=== PATIENT | female | born 1995 | race Caucasian/White ===

== ENCOUNTER 2016-10-27 19:11 | Emergency (ER) | payer OTHER ==
[2016-10-27] MEDS ORDERED: ALBUTEROL SULFATE 2.5 MG/0.5 ML INH NEB SOLN As Ordered ONE (21:57)
[2016-10-27] MEDS ORDERED: ALBUTEROL 90 MCG/ACT 8GM HFA INHALER As Ordered ONE (23:33)
[2016-10-27] MEDS ORDERED: AZITHROMYCIN 250 MG TAB As Ordered ONE (23:33)
[2016-10-27] MEDS ORDERED: predniSONE 20 MG TAB As Ordered ONE (23:34)
--- NOTE | 2016-10-27 23:41 | EDDOCDS ---
Nurse's Notes [facility] Name: Donaldo Ríos Age: 21 yrs Sex: Female : 1995 Arrival Date: 10/27/2016 Time: 19:11 Bed I6 / 28 Private MD: NO PRIMARY PHYSICIAN, . Diagnosis: Acute bronchitis;Asthma Presentation: 10/27 19:26 Presenting complaint: Patient states: fever, chills, SOB and chest hurts that started dsf this morning. Adult Sepsis Screening: The patient does not have new or worsening altered mentation. Patient's respiratory rate is less than 22. Systolic blood pressure is greater than 100. Patient has a qSOFA score of 0- Negative Sepsis Screen. Suicide/Homicide risk assessment- the patient denies having any suicidal and/or homicidal ideations and does not present with any other emotional, behavioral or mental health complaints. Status: The patient is a dependent. Transition of care: patient was not received from another setting of care. 19:26 Acuity: AGA Level 4 dsf 19:26 Method Of Arrival: Walkin/Carried/Asstd dsf Triage Assessment: 19:28 General: Appears in no apparent distress, Behavior is appropriate for age, cooperative, dsf Reports chills for 12-24 hours, fever for 12-24 hours, feeling ill for 12-24 hours, fatigue for 12-24 hours. Pain: Location: chest Pain currently is 8 out of 10 on a pain scale. Quality of pain is described as "irritating" Aggravated by deep breathing and coughing. HIV screening NA for this visit Offered previously. Respiratory: Reports cough that is non-productive, since this morning. 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 none - PMHx: Asthma; - PSHx: Cholecystectomy; ; back surgery; - Social history: Smoking status: Patient uses tobacco products, current every day smoker. No barriers to communication noted, The patient speaks fluent Barbadian, Speaks appropriately for age. - Family history: Not pertinent. - : The pt / caregiver states he / she is not on anticoagulants. Home medication list is obtained from the patient. - Exposure Risk Screening:: None identified. Screenin:55 Screening information is obtained from the patient. Fall risk: No risks identified. mlc Assistance ADL's: requires no assistance with activities of daily living. Abuse/DV Screen: The patient / caregiver reports he/she is: not in a situation that causes fear, pain or injury. Nutritional screening: No deficits noted. Advance Directives: Currently, there is no health care proxy. home support is adequate. Assessment: 21:33 General: Appears in no apparent distress, Behavior is appropriate for age, cooperative. nn1 General: Patient reports chills and body aches, reports fever yesterday. reports pain in chest only when coughing , cough is non productive . Pain: Location: mid-sternal area Pain began 1 day ago Aggravated by coughing. Neurological: Level of Consciousness is awake, alert, obeys commands, Oriented to person, place, time. Respiratory: Airway is patent Respiratory effort is even, unlabored, Respiratory pattern is regular, symmetrical, Breath sounds are clear bilaterally. Reports shortness of breath cough that is pain with cough. GI: No deficits noted. Derm: Skin is pink, warm & dry. 21:55 General: Appears in no apparent distress, comfortable, Behavior is cooperative. mlc General: pt given water per provider. . Neurological: Level of Consciousness is awake, alert, Oriented to person, place, time. Cardiovascular: Heart tones S1 S2 present. Respiratory: Airway is patent Respiratory effort is even, unlabored, Respiratory pattern is regular, Breath sounds are clear bilaterally. Derm: Skin is pink, warm & dry. 23:38 General: Appears in no apparent distress, comfortable, Behavior is cooperative. mlc Neurological: Level of Consciousness is awake, alert, Oriented to person, place, time. Respiratory: Airway is patent Respiratory effort is even, unlabored, Respiratory pattern is regular. Vital Signs: 19:13 BP 122 / 68; Pulse 65; Resp 18; Temp 99.; Pulse Ox 98% ; Weight 49.9 kg; Height 4 ft. elp 11 in. (149.86 cm); 21:35 BP 113 / 75; Pulse 64; Resp 18; Temp 99.2(O); Pulse Ox 98% on R/A; nn1 23:23 BP 120 / 60; Pulse 62; Resp 16; Temp 98.0; Pulse Ox 100% ; Pain 9/10; ajs 19:13 Body Mass Index 22.22 (49.90 kg, 149.86 cm) [facility] Vitals: 19:13 Log In Time: October 27, 2016 at 19:11. [facility] ED Course: 19:13 Patient visited by Melissa Garcia PCA. elp 19:13 NO PRIMARY PHYSICIAN, . is Private Physician. elp 19:13 Patient moved to Waiting elp 19:14 Patient visited by Melissa Garcia PCA. elp 19:14 Patient moved to Pre RCE elp 19:26 Triage Initiated dsf 21:29 Patient moved to Triage 3 dsf 21:30 Fahad Jean [facility]-C [facility] ck7 21:30 Shahriar Hobbs MD is Attending Physician. ck7 21:30 Patient visited by Fahad Jean RPA-C. ck7 21:39 Patient moved to I6 / dsf 21:42 -Influenza A&B Rapid Antigen - Nose Sent. dsf 21:49 Jazz Mcclendon,RN is Primary Nurse. cf2 21:49 Patient visited by Jazz Mcclendon,FRANKLIN. cf2 21:55 The patient / caregiver is instructed regarding the plan of care and ED course. mlc 21:56 Patient visited by Bibiana Vasquez,FRANKLIN. mlc 22:16 Patient moved to Radiology boom 22:18 Patient visited by Jazz Mcclendon,FRANKLIN. cf2 22:27 Patient moved to I6 / mlc 22:58 Patient visited by Jazz Mcclendon,FRANKLIN. cf2 23:07 Patient name changed from Donaldo\\S\\\\S\\[place]ano\\S\\ to Donaldo\\S\\ \\S\\[place]. EDMS 23:11 [facility] Payment Agreement was scanned into [employer] and attached to record. ks16 23:18 [facility] is Referral Physician. ck7 23:23 Patient visited by Fabi Rod. ajs 23:38 No IV's were initiated during this patient's visit. No procedures done that require mlc assistance. Administered Medications: 22:00 Drug: Albuterol 2.5 mg [albuterol sulfate 2.5 mg/0.5 mL solution for nebulization (0.5 lf2 mL)] Route: Nebulizer; 23:39 Drug: predniSONE 40 mg [prednisone 20 mg tablet (2 tabs)] Route: PO; mlc 23:39 Follow up: Response: Pt left department before re-evaluation is appropriate mlc 23:39 Drug: azithromycin 500 mg [azithromycin 250 mg tablet (2 tabs)] Route: PO; mlc 23:40 Follow up: Response: Pt left department before re-evaluation is appropriate mlc 23:39 Drug: Ventolin 2 puffs [Ventolin HFA 90 mcg/actuation aerosol inhaler (2 puffs)] Route: mlc Inhalation; RT: 22:00 Initial Med Neb Given as ordered Patient was instructed and evaluated on procedure lf2 Patient tolerated procedure well without adverse effect. Oxygen is room air. Respiratory: Airway is patent Respiratory effort is even, unlabored, Breath sounds are clear bilaterally. Reports shortness of breath at rest on exertion cough that is non-productive. Order Results: Lab Order: -Influenza A&B Rapid Antigen - Nose; SPEC'M 10/27/16 21:41 Test: INFLUENZA A RAPID SCR by ICA; Value: INFLUENZA A RESULTS NEGATIVE; Status: F Test: INFLUENZA A RAPID SCR by ICA; Value: Comments:; Status: F Test: INFLUENZA B RAPID SCR by ICA; Value: INFLUENZA B RESULTS NEGATIVE; Status: F Test Note: ; The Influenza test is a direct rapid immunoassay for the qualitative detection of Influenza viral antigen. Cell culture (Viral Culture) testing should be considered to confirm NEGATIVE results and to assist in detecting other viruses that can provide similar clinical symptoms. Please contact the lab within 24 hours ([phone]) if confirmatory testing is desired. Outcome: 23:18 Discharge ordered by Provider. ck7 23:38 Discharge Assessment: Patient awake, alert and oriented x 3. No cognitive and/or mlc functional deficits noted. Patient verbalized understanding of disposition instructions. patient administered narcotics - no. The following High Risk Discharge criteria are identified: None. Discharged to home ambulatory. Condition: good Condition: stable. Discharge instructions given to patient, Instructed on discharge instructions, follow up and referral plans. medication usage, Demonstrated understanding of instructions, medications, Pt was receptive of discharge instructions/ teaching. Prescriptions given X 3. No special radiology studies were completed. Property sent home with patient. 23:40 Patient left the ED. mlc Signatures: Dispatcher [employer] EDMS Nj Marshall Desiree, RN RN Fabi Villegas Christopher, RPA-C RPA-Cck7 Patchen, Melissa, BOX FEEDER BOX FEEDER elp Bibiana Vasquez,RN RN mlc Juan Carlos Salazar,RN RN nn1 Chiara John, [facility] Reg ks16 Akanksha Stallings,RT RT lf2 Jazz Mcclendon,RN RN cf2 MTDD
--- NOTE | 2016-10-27 23:41 | EDDOCDS ---
Physician Documentation [facility] Name: Donaldo Ríos Age: 21 yrs Sex: Female : 1995 Arrival Date: 10/27/2016 Time: 19:11 Bed I6 / 28 Private MD: NO PRIMARY PHYSICIAN, . Disposition: 10/27/16 23:18 Discharged to Home/Self Care. Impression: Acute bronchitis, Asthma. - Condition is Stable. - Discharge Instructions: Acute Bronchitis, Asthma, Adult. - Prescriptions for Prednisone 20 mg Oral Tablet - take 2 tablets by ORAL route once daily for 4 days; 8 tablet. Zithromax 250 mg Oral Tablet - take 1 tablet by ORAL route once daily start tomorrow; 4 tablet. Albuterol Sulfate 90 mcg/actuation Inhalation HFA Aerosol Inhaler - inhale 2 puff by INHALATION route every 4 hours As needed; 1 Inhaler. - Medication Reconciliation, Local Pharmacy Hours form. - Follow up: [facility]; When: 2 - 3 days; Reason: Recheck today's complaints, Continuance of care. - Problem is new. - Symptoms have improved. - Notes: USE MEDICATIONS INSTRUCTED, FOLLOW UP WITH THE GRADUATE MEDICAL PROGRAM, RETURN TO THE ER IF THE SYMPTOMS WORSEN OR BECOME CONCERNING Historical: - Allergies: Bactrim (Anaphylaxis); nystatin (Anaphylaxis); - Home Meds: 1. none - PMHx: Asthma; - PSHx: Cholecystectomy; ; back surgery; - Social history: Smoking status: Patient uses tobacco products, current every day smoker. No barriers to communication noted, The patient speaks fluent Mongolian, Speaks appropriately for age. - Family history: Not pertinent. - : The pt / caregiver states he / she is not on anticoagulants. Home medication list is obtained from the patient. - Exposure Risk Screening:: None identified. 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 11 in. (149.86 cm); 21:35 BP 113 / 75; Pulse 64; Resp 18; Temp 99.2(O); Pulse Ox 98% on R/A; nn1 23:23 BP 120 / 60; Pulse 62; Resp 16; Temp 98.0; Pulse Ox 100% ; Pain 9/10; ajs 19:13 Body Mass Index 22.22 (49.90 kg, 149.86 cm) elp MDM: 21:38 Albuterol 2.5 mg Nebulizer once ordered. ck7 21:38 Call Respiratory ordered. ck7 21:38 Obtain sample by nasopharyngeal swab ordered. ck7 21:39 Call Respiratory complete. ajs 21:40 -Influenza A&B Rapid Antigen - Nose Ordered. EDMS 21:40 Chest, 2 View (pa\E\lat) Ordered. EDMS 22:12 -Influenza A&B Rapid Antigen - Nose Reviewed. ck7 22:52 Financial registration complete. ks16 23:11 [facility] Payment Agreement was scanned into [employer] and attached to record. ks16 23:17 predniSONE 40 mg PO once; administer with food or milk ordered. ck7 23:17 azithromycin 500 mg PO once ordered. ck7 23:17 Ventolin Inhaler 2 puffs Inhalation once ordered. ck7 Administered Medications: 22:00 Drug: Albuterol 2.5 mg [albuterol sulfate 2.5 mg/0.5 mL solution for nebulization (0.5 lf2 mL)] Route: Nebulizer; 23:39 Drug: predniSONE 40 mg [prednisone 20 mg tablet (2 tabs)] Route: PO; mlc 23:39 Follow up: Response: Pt left department before re-evaluation is appropriate mlc 23:39 Drug: azithromycin 500 mg [azithromycin 250 mg tablet (2 tabs)] Route: PO; mlc 23:40 Follow up: Response: Pt left department before re-evaluation is appropriate mlc 23:39 Drug: Ventolin 2 puffs [Ventolin HFA 90 mcg/actuation aerosol inhaler (2 puffs)] Route: mlc Inhalation; Signatures: Dispatcher [employer] EDMS Joana Garcia RN RN dsf Slate, Amanda ajs Kwaczala, Christopher, RPA-C RPA-Cck7 Bibiana Vasquez RN RN mlc Sorenson, Kimberly, Reg Reg ks16 Akanksha Stallings RT lf2 The chart was reviewed and I authenticate all verbal orders and agree with the evaluation and treatment provided.Attachments: 23:11 [facility] Payment Agreement ks16 MTDD
--- NOTE | 2016-10-28 01:47 | REP ---
Clinical: Acute cough . Comparison: None . Technique: PA and lateral. Findings: The mediastinum and cardiac silhouette are normal. The lung cheung are clear and without acute consolidation, effusion, or pneumothorax. Gunn rods noted through the thoracolumbar spine. Impression: 1. No acute cardiopulmonary process. Signed by Mike Olson MD 10/28/2016 01:38 A
--- NOTE | 2016-10-30 00:40 | EDDOCDS ---
Nurse's Notes [facility] Name: Donaldo Ríos Age: 21 yrs Sex: Female : 1995 Arrival Date: 10/27/2016 Time: 19:11 Bed I6 / 28 Private MD: NO PRIMARY PHYSICIAN, . Diagnosis: Acute bronchitis;Asthma Presentation: 10/27 19:26 Presenting complaint: Patient states: fever, chills, SOB and chest hurts that started dsf this morning. Adult Sepsis Screening: The patient does not have new or worsening altered mentation. Patient's respiratory rate is less than 22. Systolic blood pressure is greater than 100. Patient has a qSOFA score of 0- Negative Sepsis Screen. Suicide/Homicide risk assessment- the patient denies having any suicidal and/or homicidal ideations and does not present with any other emotional, behavioral or mental health complaints. Status: The patient is a dependent. Transition of care: patient was not received from another setting of care. 19:26 Acuity: AGA Level 4 dsf 19:26 Method Of Arrival: Walkin/Carried/Asstd dsf Triage Assessment: 19:28 General: Appears in no apparent distress, Behavior is appropriate for age, cooperative, dsf Reports chills for 12-24 hours, fever for 12-24 hours, feeling ill for 12-24 hours, fatigue for 12-24 hours. Pain: Location: chest Pain currently is 8 out of 10 on a pain scale. Quality of pain is described as "irritating" Aggravated by deep breathing and coughing. HIV screening NA for this visit Offered previously. Respiratory: Reports cough that is non-productive, since this morning. 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 none - PMHx: Asthma; - PSHx: Cholecystectomy; ; back surgery; - Social history: Smoking status: Patient uses tobacco products, current every day smoker. No barriers to communication noted, The patient speaks fluent Nicaraguan, Speaks appropriately for age. - Family history: Not pertinent. - : The pt / caregiver states he / she is not on anticoagulants. Home medication list is obtained from the patient. - Exposure Risk Screening:: None identified. Screenin:55 Screening information is obtained from the patient. Fall risk: No risks identified. mlc Assistance ADL's: requires no assistance with activities of daily living. Abuse/DV Screen: The patient / caregiver reports he/she is: not in a situation that causes fear, pain or injury. Nutritional screening: No deficits noted. Advance Directives: Currently, there is no health care proxy. home support is adequate. Assessment: 21:33 General: Appears in no apparent distress, Behavior is appropriate for age, cooperative. nn1 General: Patient reports chills and body aches, reports fever yesterday. reports pain in chest only when coughing , cough is non productive . Pain: Location: mid-sternal area Pain began 1 day ago Aggravated by coughing. Neurological: Level of Consciousness is awake, alert, obeys commands, Oriented to person, place, time. Respiratory: Airway is patent Respiratory effort is even, unlabored, Respiratory pattern is regular, symmetrical, Breath sounds are clear bilaterally. Reports shortness of breath cough that is pain with cough. GI: No deficits noted. Derm: Skin is pink, warm & dry. 21:55 General: Appears in no apparent distress, comfortable, Behavior is cooperative. mlc General: pt given water per provider. . Neurological: Level of Consciousness is awake, alert, Oriented to person, place, time. Cardiovascular: Heart tones S1 S2 present. Respiratory: Airway is patent Respiratory effort is even, unlabored, Respiratory pattern is regular, Breath sounds are clear bilaterally. Derm: Skin is pink, warm & dry. 23:38 General: Appears in no apparent distress, comfortable, Behavior is cooperative. mlc Neurological: Level of Consciousness is awake, alert, Oriented to person, place, time. Respiratory: Airway is patent Respiratory effort is even, unlabored, Respiratory pattern is regular. Vital Signs: 19:13 BP 122 / 68; Pulse 65; Resp 18; Temp 99.; Pulse Ox 98% ; Weight 49.9 kg; Height 4 ft. elp 11 in. (149.86 cm); 21:35 BP 113 / 75; Pulse 64; Resp 18; Temp 99.2(O); Pulse Ox 98% on R/A; nn1 23:23 BP 120 / 60; Pulse 62; Resp 16; Temp 98.0; Pulse Ox 100% ; Pain 9/10; ajs 19:13 Body Mass Index 22.22 (49.90 kg, 149.86 cm) [facility] Vitals: 19:13 Log In Time: October 27, 2016 at 19:11. [facility] ED Course: 19:13 Patient visited by Melissa Garcia PCA. elp 19:13 NO PRIMARY PHYSICIAN, . is Private Physician. elp 19:13 Patient moved to Waiting elp 19:14 Patient visited by Melissa Garcia PCA. elp 19:14 Patient moved to Pre RCE elp 19:26 Triage Initiated dsf 21:29 Patient moved to Triage 3 dsf 21:30 Fahad Jean [facility]C [facility]. ck7 21:30 Shahriar Hobbs MD is Attending Physician. ck7 21:30 Patient visited by Fahad Jean RPA-C. ck7 21:39 Patient moved to I6 / dsf 21:42 -Influenza A&B Rapid Antigen - Nose Sent. dsf 21:49 Jazz Mcclendon,RN is Primary Nurse. cf2 21:49 Patient visited by Jazz Mcclendon,FRANKLIN. cf2 21:55 The patient / caregiver is instructed regarding the plan of care and ED course. mlc 21:56 Patient visited by Bibiana Vasquez,FRANKLIN. mlc 22:16 Patient moved to Radiology boom 22:18 Patient visited by Jazz Mcclendon,FRANKLIN. cf2 22:27 Patient moved to I6 mlc 22:58 Patient visited by Jazz Mcclendon,FRANKLIN. cf2 23:07 Patient name changed from Donaldo\\S\\\\S\\[place]oacano\\S\\ to Donaldo\\S\\ \\S\\[place]. EDMS 23:11 [facility] Payment Agreement was scanned into [employer] and attached to record. ks16 23:18 [facility] is Referral Physician. ck7 23:23 Patient visited by Fabi Rod. ajs 23:38 No IV's were initiated during this patient's visit. No procedures done that require mlc assistance. 10/28 01:58 Chest, 2 View (pa\\E\\lat) Returned. EDMS 11:34 T-Sheet-- Draft Copy was scanned into [employer] and attached to record. gb Administered Medications: 10/27 22:00 Drug: Albuterol 2.5 mg [albuterol sulfate 2.5 mg/0.5 mL solution for nebulization (0.5 lf2 mL)] Route: Nebulizer; 23:39 Drug: predniSONE 40 mg [prednisone 20 mg tablet (2 tabs)] Route: PO; mlc 23:39 Follow up: Response: Pt left department before re-evaluation is appropriate mlc 23:39 Drug: azithromycin 500 mg [azithromycin 250 mg tablet (2 tabs)] Route: PO; mlc 23:40 Follow up: Response: Pt left department before re-evaluation is appropriate mlc 23:39 Drug: Ventolin 2 puffs [Ventolin HFA 90 mcg/actuation aerosol inhaler (2 puffs)] Route: mlc Inhalation; RT: 22:00 Initial Med Neb Given as ordered Patient was instructed and evaluated on procedure lf2 Patient tolerated procedure well without adverse effect. Oxygen is room air. Respiratory: Airway is patent Respiratory effort is even, unlabored, Breath sounds are clear bilaterally. Reports shortness of breath at rest on exertion cough that is non-productive. Order Results: Lab Order: -Influenza A&B Rapid Antigen - Nose; SPEC'M 10/27/16 21:41 Test: INFLUENZA A RAPID SCR by ICA; Value: INFLUENZA A RESULTS NEGATIVE; Status: F Test: INFLUENZA A RAPID SCR by ICA; Value: Comments:; Status: F Test: INFLUENZA B RAPID SCR by ICA; Value: INFLUENZA B RESULTS NEGATIVE; Status: F Test Note: ; The Influenza test is a direct rapid immunoassay for the qualitative detection of Influenza viral antigen. Cell culture (Viral Culture) testing should be considered to confirm NEGATIVE results and to assist in detecting other viruses that can provide similar clinical symptoms. Please contact the lab within 24 hours ([phone]) if confirmatory testing is desired. Radiology Order: Chest, 2 View (pa\\E\\lat) Test: Chest, 2 View (pa\\E\\lat) REASON FOR EXAMINATION: Cough; Clinical: Acute cough .; ; Comparison: None .; ; Technique: PA and lateral.; ; Findings:; The mediastinum and cardiac silhouette are normal. The lung cheung are clear and; without acute consolidation, effusion, or pneumothorax. Gunn rods noted; through the thoracolumbar spine.; ; Impression:; 1. No acute cardiopulmonary process.; ; ; Signed by; Mike Olson MD 10/28/2016 01:38 A; Outcome: 23:18 Discharge ordered by Provider. ck7 23:38 Discharge Assessment: Patient awake, alert and oriented x 3. No cognitive and/or mlc functional deficits noted. Patient verbalized understanding of disposition instructions. patient administered narcotics - no. The following High Risk Discharge criteria are identified: None. Discharged to home ambulatory. Condition: good Condition: stable. Discharge instructions given to patient, Instructed on discharge instructions, follow up and referral plans. medication usage, Demonstrated understanding of instructions, medications, Pt was receptive of discharge instructions/ teaching. Prescriptions given X 3. No special radiology studies were completed. Property sent home with patient. 23:40 Patient left the ED. [facility] Signatures: Dispatcher [employer] EDMS Nj Marshall Gloria, Reg Reg gb Joana Garcia,RN RN dsFabi Lechuga Christopher, RPA-C RPA-Cck7 Melissa Garcia, SIGNAL INSPECTOR SIGNAL INSPECTOR shirlenep Bibiana Vasquez,RN RN [facility] Juan Carlos Salazar,RN RN nn1 Chiara John, Reg Reg ks16 Akanksha Stallings,RT RT lf2 Jazz Mcclendon,RN RN cf2 Chart Complete MTDD
--- NOTE | 2016-10-30 00:40 | EDDOCDS ---
Physician Documentation [facility] Name: Donaldo Ríos Age: 21 yrs Sex: Female : 1995 Arrival Date: 10/27/2016 Time: 19:11 Bed I6 / 28 Private MD: NO PRIMARY PHYSICIAN, . Disposition: 10/27/16 23:18 Discharged to Home/Self Care. Impression: Acute bronchitis, Asthma. - Condition is Stable. - Discharge Instructions: Acute Bronchitis, Asthma, Adult. - Prescriptions for Prednisone 20 mg Oral Tablet - take 2 tablets by ORAL route once daily for 4 days; 8 tablet. Zithromax 250 mg Oral Tablet - take 1 tablet by ORAL route once daily start tomorrow; 4 tablet. Albuterol Sulfate 90 mcg/actuation Inhalation HFA Aerosol Inhaler - inhale 2 puff by INHALATION route every 4 hours As needed; 1 Inhaler. - Medication Reconciliation, Local Pharmacy Hours form. - Follow up: [facility]; When: 2 - 3 days; Reason: Recheck today's complaints, Continuance of care. - Problem is new. - Symptoms have improved. - Notes: USE MEDICATIONS INSTRUCTED, FOLLOW UP WITH THE GRADUATE MEDICAL PROGRAM, RETURN TO THE ER IF THE SYMPTOMS WORSEN OR BECOME CONCERNING Historical: - Allergies: Bactrim (Anaphylaxis); nystatin (Anaphylaxis); - Home Meds: 1. none - PMHx: Asthma; - PSHx: Cholecystectomy; ; back surgery; - Social history: Smoking status: Patient uses tobacco products, current every day smoker. No barriers to communication noted, The patient speaks fluent Korean, Speaks appropriately for age. - Family history: Not pertinent. - : The pt / caregiver states he / she is not on anticoagulants. Home medication list is obtained from the patient. - Exposure Risk Screening:: None identified. 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 11 in. (149.86 cm); 21:35 BP 113 / 75; Pulse 64; Resp 18; Temp 99.2(O); Pulse Ox 98% on R/A; nn1 23:23 BP 120 / 60; Pulse 62; Resp 16; Temp 98.0; Pulse Ox 100% ; Pain 9/10; ajs 19:13 Body Mass Index 22.22 (49.90 kg, 149.86 cm) elp MDM: 21:38 Albuterol 2.5 mg Nebulizer once ordered. ck7 21:38 Call Respiratory ordered. ck7 21:38 Obtain sample by nasopharyngeal swab ordered. ck7 21:39 Call Respiratory complete. ajs 21:40 -Influenza A&B Rapid Antigen - Nose Ordered. EDMS 21:40 Chest, 2 View (pa\E\lat) Ordered. EDMS 22:12 -Influenza A&B Rapid Antigen - Nose Reviewed. ck7 22:52 Financial registration complete. [email or web address] 23:11 [facility] Payment Agreement was scanned into Appcelerator and attached to record. ks16 23:17 predniSONE 40 mg PO once; administer with food or milk ordered. ck7 23:17 azithromycin 500 mg PO once ordered. ck7 23:17 Ventolin Inhaler 2 puffs Inhalation once ordered. ck7 10/28 11:34 T-Sheet-- Draft Copy was scanned into Appcelerator and attached to record. gb Administered Medications: 10/27 22:00 Drug: Albuterol 2.5 mg [albuterol sulfate 2.5 mg/0.5 mL solution for nebulization (0.5 lf2 mL)] Route: Nebulizer; 23:39 Drug: predniSONE 40 mg [prednisone 20 mg tablet (2 tabs)] Route: PO; mlc 23:39 Follow up: Response: Pt left department before re-evaluation is appropriate mlc 23:39 Drug: azithromycin 500 mg [azithromycin 250 mg tablet (2 tabs)] Route: PO; mlc 23:40 Follow up: Response: Pt left department before re-evaluation is appropriate mlc 23:39 Drug: Ventolin 2 puffs [Ventolin HFA 90 mcg/actuation aerosol inhaler (2 puffs)] Route: mlc Inhalation; Signatures: Dispatcher MedHost EDMS Lili Arellano, Reg Reg gb Joana Garcia,RN RN dsf Fabi Rod Christopher, RPA-C [id number] Bibiana Vasquez RN RN mlc Sorenson, Kimberly, Reg Reg ks16 Akanksha Stallings RT lf2 The chart was reviewed and I authenticate all verbal orders and agree with the evaluation and treatment provided.Attachments: 23:11 [facility] Payment Agreement [email or web address] 10/28 11:34 T-Sheet-- Draft Copy gb Chart Complete MTDD
--- NOTE | 2016-10-30 00:40 | EDDOCDS ---
Physician Documentation [facility] Name: Donaldo Ríos Age: 21 yrs Sex: Female : 1995 Arrival Date: 10/27/2016 Time: 19:11 Bed I6 / 28 Private MD: NO PRIMARY PHYSICIAN, . Disposition: 10/27/16 23:18 Discharged to Home/Self Care. Impression: Acute bronchitis, Asthma. - Condition is Stable. - Discharge Instructions: Acute Bronchitis, Asthma, Adult. - Prescriptions for Prednisone 20 mg Oral Tablet - take 2 tablets by ORAL route once daily for 4 days; 8 tablet. Zithromax 250 mg Oral Tablet - take 1 tablet by ORAL route once daily start tomorrow; 4 tablet. Albuterol Sulfate 90 mcg/actuation Inhalation HFA Aerosol Inhaler - inhale 2 puff by INHALATION route every 4 hours As needed; 1 Inhaler. - Medication Reconciliation, Local Pharmacy Hours form. - Follow up: [facility]; When: 2 - 3 days; Reason: Recheck today's complaints, Continuance of care. - Problem is new. - Symptoms have improved. - Notes: USE MEDICATIONS INSTRUCTED, FOLLOW UP WITH THE GRADUATE MEDICAL PROGRAM, RETURN TO THE ER IF THE SYMPTOMS WORSEN OR BECOME CONCERNING Historical: - Allergies: Bactrim (Anaphylaxis); nystatin (Anaphylaxis); - Home Meds: 1. none - PMHx: Asthma; - PSHx: Cholecystectomy; ; back surgery; - Social history: Smoking status: Patient uses tobacco products, current every day smoker. No barriers to communication noted, The patient speaks fluent Telugu, Speaks appropriately for age. - Family history: Not pertinent. - : The pt / caregiver states he / she is not on anticoagulants. Home medication list is obtained from the patient. - Exposure Risk Screening:: None identified. 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 11 in. (149.86 cm); 21:35 BP 113 / 75; Pulse 64; Resp 18; Temp 99.2(O); Pulse Ox 98% on R/A; nn1 23:23 BP 120 / 60; Pulse 62; Resp 16; Temp 98.0; Pulse Ox 100% ; Pain 9/10; ajs 19:13 Body Mass Index 22.22 (49.90 kg, 149.86 cm) elp MDM: 21:38 Albuterol 2.5 mg Nebulizer once ordered. ck7 21:38 Call Respiratory ordered. ck7 21:38 Obtain sample by nasopharyngeal swab ordered. ck7 21:39 Call Respiratory complete. ajs 21:40 -Influenza A&B Rapid Antigen - Nose Ordered. EDMS 21:40 Chest, 2 View (pa\E\lat) Ordered. EDMS 22:12 -Influenza A&B Rapid Antigen - Nose Reviewed. ck7 22:52 Financial registration complete. ks16 23:11 [facility] Payment Agreement was scanned into gdgt and attached to record. ks16 23:17 predniSONE 40 mg PO once; administer with food or milk ordered. ck7 23:17 azithromycin 500 mg PO once ordered. ck7 23:17 Ventolin Inhaler 2 puffs Inhalation once ordered. ck7 10/28 11:34 T-Sheet-- Draft Copy was scanned into gdgt and attached to record. gb Administered Medications: 10/27 22:00 Drug: Albuterol 2.5 mg [albuterol sulfate 2.5 mg/0.5 mL solution for nebulization (0.5 lf2 mL)] Route: Nebulizer; 23:39 Drug: predniSONE 40 mg [prednisone 20 mg tablet (2 tabs)] Route: PO; mlc 23:39 Follow up: Response: Pt left department before re-evaluation is appropriate mlc 23:39 Drug: azithromycin 500 mg [azithromycin 250 mg tablet (2 tabs)] Route: PO; mlc 23:40 Follow up: Response: Pt left department before re-evaluation is appropriate mlc 23:39 Drug: Ventolin 2 puffs [Ventolin HFA 90 mcg/actuation aerosol inhaler (2 puffs)] Route: mlc Inhalation; Signatures: Dispatcher MedHost EDMS Lili Arellano, Reg Reg gb Joana Garcia,RN RN dsf Fabi Rod Christopher, RPA-C RPA-Cck7 Bibiana Vasquez RN RN mlc Sorenson, Kimberly, Reg Reg ks16 Akanksha Stallings RT lf2 The chart was reviewed and I authenticate all verbal orders and agree with the evaluation and treatment provided.Attachments: 23:11 [facility] Payment Agreement [email or web address] 10/28 11:34 T-Sheet-- Draft Copy gb Chart Complete MTDD
== END 2016-10-27 23:40 | disposition home or self-care (01) ==
LOC: M ED 19:11
DX: J20.9 Acute bronchitis, unspecified (principal); J45.909 Unspecified asthma, uncomplicated; F17.210 Nicotine dependence, cigarettes, uncomplicated; Z88.2 Allergy status to sulfonamides; Z88.8 Allergy status to other drugs, medicaments and biological substances

== ENCOUNTER 2017-05-08 08:57 | Emergency (ER) | payer OTHER ==
[~2017-05-08] VITALS: Ht 149.9 cm; Wt 50.0 kg
[2017-05-08 08:57] VITALS: BP 121/57
--- NOTE | 2017-05-08 09:54 | REP ---
LEFT HAND SERIES: Four views. HISTORY: Question trauma. FINDINGS: Four views of the left hand demonstrate that the thumb, and greater multangular are congenitally or surgically absent. The radial styloid is somewhat hypoplastic. An extremely small navicular bone is present at the carpus. The capitate, hamate, lunate, triquetrum, pisiform, and lesser multangular are present and unremarkable. No fracture or subluxation is seen. There is some soft tissue fullness dorsally over the carpus on lateral film. IMPRESSION: No fracture noted. 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 Signed by Parish Kincaid MD 05/08/2017 11:08 A
[2017-05-08] MEDS ORDERED: IBUP80TA PO (10:11)
[2017-05-08] MEDS ORDERED: IBUPROFEN 800 MG TAB PO ONE (10:30)
== END 2017-05-08 10:26 | disposition home or self-care (01) ==
LOC: M ED 09:29
DX: S63.502A Unspecified sprain of left wrist, initial encounter (principal); X50.0XXA Overexertion from strenuous movement or load, initial encounter; Y92.89 Other specified places as the place of occurrence of the external cause; Y93.89 Activity, other specified; Y99.8 Other external cause status; K58.9 Irritable bowel syndrome, unspecified; F33.9 Major depressive disorder, recurrent, unspecified; F41.9 Anxiety disorder, unspecified; F43.10 Post-traumatic stress disorder, unspecified; Z88.1 Allergy status to other antibiotic agents; Z88.2 Allergy status to sulfonamides; Z88.8 Allergy status to other drugs, medicaments and biological substances

== ENCOUNTER 2018-04-09 20:56 | Inpatient (IN) | payer OTHER, SELFPAY ==
[2018-04-09 21:57] LABS: HEMATOCRIT 37.5 % (36.0-47.0); HEMOGLOBIN 12.1 g/dl (12.0-15.5); MEAN CORPUSCULAR HEMOGLOBIN 28.1 pg (27.0-33.0); MEAN CORPUSCULAR HGB CONC 32.3 g/dl (32.0-36.5); MEAN CORPUSCULAR VOLUME 87.2 fl (80.0-96.0); PLATELET COUNT, AUTOMATED 217 10^3/uL (150-450); RED CELL DISTRIBUTION WIDTH 14.8 % (11.5-14.5); WHITE BLOOD COUNT 5.9 10^3/uL (4.0-10.0)
[2018-04-09 22:14] LABS: CONTROL LINE HCG INT CTR LINE PRESENT; HCG, SERUM QUALITATIVE NEGATIVE (NEGATIVE)
[2018-04-09 22:31] LABS: ALBUMIN 3.9 GM/DL (3.2-5.2); ALKALINE PHOSPHATASE 103 U/L (45-117); ALT/SGPT 20 U/L (12-78); ANION GAP 8 MEQ/L (8-16); AST/SGOT 12 U/L (7-37); BILIRUBIN,DIRECT < 0.1 MG/DL (0.0-0.2); BILIRUBIN,TOTAL 0.3 MG/DL (0.2-1.0); BLOOD UREA NITROGEN 15 MG/DL (7-18); CALCIUM LEVEL 8.6 MG/DL (8.5-10.1); CARBON DIOXIDE LEVEL 26 MEQ/L (21-32); CHLORIDE LEVEL 109 MEQ/L (98-107); CREATININE FOR GFR 0.82 MG/DL (0.55-1.30); GLOMERULAR FILTRATION RATE > 60.0 (>60); GLUCOSE, FASTING 81 MG/DL (70-100); POTASSIUM SERUM 3.7 MEQ/L (3.5-5.1); SALICYLATE LEVEL < 1.7 MG/DL (5.0-30.0); SODIUM LEVEL 143 MEQ/L (136-145); TOTAL PROTEIN 6.9 GM/DL (6.4-8.2)
[2018-04-09 22:35] LABS: ACETAMINOPHEN LEVEL < 2.0 UG/ML (10.0-30.0); ETHYL ALCOHOL (ETHANOL) < 0.003 % (0.000-0.010)
[2018-04-09 22:47] LABS: AMPHETAMINES LEVEL URINE NEGATIVE (NEGATIVE); BARBITURATES URINE NEGATIVE (NEGATIVE); BENZODIAZEPINES URINE NEGATIVE (NEGATIVE); CANNABINOIDS URINE POSITIVE (NEGATIVE); COCAINE METABOLITE URINE NEGATIVE (NEGATIVE); METHADONE URINE NEGATIVE (NEGATIVE); OPIATES URINE NEGATIVE (NEGATIVE); PHENCYCLIDINE URINE NEGATIVE (NEGATIVE)
[2018-04-10] MEDS ORDERED: ACETAMINOPHEN TAB 650MG DOSE (2X325MG) PO ×2 (02:30)
[2018-04-10] MEDS ORDERED: OLANZapine ORAL DISINTEGRATING TAB 5MG PO ×2 (02:30)
[2018-04-10] MEDS ORDERED: LORazepam 1 MG TAB PO ×2 (02:30)
[2018-04-10] MEDS ORDERED: MOM 30ML SUSPENSION UDC PO ×2 (02:30)
[2018-04-10] MEDS: SERTRALINE 100 MG TAB PO ×2 (12:51)
[2018-04-10] MEDS: MAALOX 30 ML SUSP *UDC PO ×2 (14:22)
[2018-04-10] MEDS: traZODone 50 MG TAB PO ×2 (21:42)
[2018-04-11] MEDS: SERTRALINE 100 MG TAB PO ×2 (08:15)
[2018-04-11] MEDS: traZODone 50 MG TAB PO ×2 (21:48)
[2018-04-12] MEDS: SERTRALINE 100 MG TAB PO ×2 (08:13)
[2018-04-12] MEDS: traZODone 50 MG TAB PO ×2 (23:01)
[2018-04-13] MEDS: SERTRALINE 100 MG TAB PO ×2 (08:32)
== END 2018-04-13 11:25 | disposition home or self-care (01) | DRG 885 ==
LOC: M ED INP 04-10 02:23 → M PSY 04-10 03:50 → M ED 20:56
DX: F33.9 Major depressive disorder, recurrent, unspecified (principal); F43.10 Post-traumatic stress disorder, unspecified; F60.3 Borderline personality disorder; F17.210 Nicotine dependence, cigarettes, uncomplicated; F12.20 Cannabis dependence, uncomplicated; L70.0 Acne vulgaris; Z88.1 Allergy status to other antibiotic agents; Z88.2 Allergy status to sulfonamides; Z88.8 Allergy status to other drugs, medicaments and biological substances; Z91.048 Other nonmedicinal substance allergy status

== ENCOUNTER 2018-04-24 13:36 | Inpatient (IN) | payer OTHER, SELFPAY ==
[2018-04-24 15:28] LABS: HEMATOCRIT 39.6 % (36.0-47.0); HEMOGLOBIN 12.9 g/dl (12.0-15.5); MEAN CORPUSCULAR HGB CONC 32.6 g/dl (32.0-36.5); MEAN CORPUSCULAR VOLUME 86.1 fl (80.0-96.0); PLATELET COUNT, AUTOMATED 252 10^3/uL (150-450); RED CELL DISTRIBUTION WIDTH 14.9 % (11.5-14.5)
[2018-04-24 15:45] LABS: CONTROL LINE HCG INT CTR LINE PRESENT; HCG, SERUM QUALITATIVE NEGATIVE (NEGATIVE)
[2018-04-24 16:03] LABS: ALBUMIN 4.1 GM/DL (3.2-5.2); ALBUMIN/GLOBULIN RATIO 1.24 (1.00-1.93); ALKALINE PHOSPHATASE 106 U/L (45-117); ALT/SGPT 23 U/L (12-78); ANION GAP 8 MEQ/L (8-16); AST/SGOT 13 U/L (7-37); BILIRUBIN,DIRECT 0.1 MG/DL (0.0-0.2); BILIRUBIN,TOTAL 0.4 MG/DL (0.2-1.0); BLOOD UREA NITROGEN 13 MG/DL (7-18); CALCIUM LEVEL 9.2 MG/DL (8.5-10.1); CARBON DIOXIDE LEVEL 25 MEQ/L (21-32); CHLORIDE LEVEL 108 MEQ/L (98-107); CREATININE FOR GFR 0.82 MG/DL (0.55-1.30); ETHYL ALCOHOL (ETHANOL) < 0.003 % (0.000-0.010); GLOMERULAR FILTRATION RATE > 60.0 (>60); GLUCOSE, FASTING 120 MG/DL (70-100); POTASSIUM SERUM 3.9 MEQ/L (3.5-5.1); SALICYLATE LEVEL < 1.7 MG/DL (5.0-30.0); SODIUM LEVEL 141 MEQ/L (136-145); TOTAL PROTEIN 7.4 GM/DL (6.4-8.2)
[2018-04-24 16:04] LABS: ACETAMINOPHEN LEVEL < 2.0 UG/ML (10.0-30.0)
[2018-04-24 16:05] LABS: AMPHETAMINES LEVEL URINE NEGATIVE (NEGATIVE); BARBITURATES URINE NEGATIVE (NEGATIVE); BENZODIAZEPINES URINE NEGATIVE (NEGATIVE); CANNABINOIDS URINE POSITIVE (NEGATIVE); COCAINE METABOLITE URINE NEGATIVE (NEGATIVE); METHADONE URINE NEGATIVE (NEGATIVE); OPIATES URINE NEGATIVE (NEGATIVE); PHENCYCLIDINE URINE NEGATIVE (NEGATIVE)
[2018-04-25] MEDS ORDERED: MAALOX 30 ML SUSP *UDC PO (00:30)
[2018-04-25] MEDS ORDERED: ACETAMINOPHEN TAB 650MG DOSE (2X325MG) PO (00:30)
[2018-04-25] MEDS ORDERED: MOM 30ML SUSPENSION UDC PO (00:30)
[2018-04-25] MEDS: LORazepam 1 MG TAB PO (00:40)
[2018-04-25] MEDS: traZODone 50 MG TAB PO ×2 (00:40→22:12)
[2018-04-25] MEDS: SERTRALINE 100 MG TAB PO ×2 (00:40→08:34)
[2018-04-25] MEDS: LORazepam 0.5 MG TAB PO ×2 (13:13→22:14)
[2018-04-25] MEDS: ARIPiprazole 2 MG TAB PO (21:01)
[2018-04-26] MEDS: SERTRALINE 100 MG TAB PO (09:45)
[2018-04-26] MEDS: ARIPiprazole 2 MG TAB PO (20:28)
[2018-04-26] MEDS: LORazepam 0.5 MG TAB PO (22:07)
[2018-04-26] MEDS: traZODone 50 MG TAB PO (22:07)
[2018-04-27] MEDS: LORazepam 0.5 MG TAB PO (09:04)
[2018-04-27] MEDS: SERTRALINE 100 MG TAB PO (09:04)
== END 2018-04-27 10:10 | disposition home or self-care (01) | DRG 885 ==
LOC: M ED 13:36 → M ED INP 18:58 → M PSY 23:46
DX: F33.9 Major depressive disorder, recurrent, unspecified (principal); F43.10 Post-traumatic stress disorder, unspecified; F17.200 Nicotine dependence, unspecified, uncomplicated; Z79.899 Other long term (current) drug therapy; Z90.49 Acquired absence of other specified parts of digestive tract; Z88.1 Allergy status to other antibiotic agents; Z88.2 Allergy status to sulfonamides; Z91.048 Other nonmedicinal substance allergy status

== ENCOUNTER 2019-12-01 13:34 | Inpatient (IN) | payer BC, OTHER ==
[~2019-12-01] VITALS: Ht 175.3 cm; Wt 48.9 kg
[~2019-12-01 13:34] MED LIST: ARIP1TAB4 PO; IBUP80TA PO; SERT-138 PO; TRAZ1TAB10 PO; ZOLO100T PO
[2019-12-01] MEDS ORDERED: ALPR0.5T3 (13:53)
[2019-12-01 14:24] LABS: BASO % 0.4 % (0.0-1.0); EOS % 0.2 % (0.0-3.0); HEMATOCRIT 40.2 % (36.0-47.0); HEMOGLOBIN 13.4 g/dl (12.0-15.5); LYMPH # 1.3 10^3/uL (1.5-5.0); LYMPH % 23.3 % (24.0-44.0); MEAN CORPUSCULAR HEMOGLOBIN 30.5 pg (27.0-33.0); MEAN CORPUSCULAR HGB CONC 33.3 g/dl (32.0-36.5); MEAN CORPUSCULAR VOLUME 91.4 fl (80.0-96.0); MONO # 0.3 10^3/uL (0.0-0.8); NEUTROPHILS # 3.9 10^3/uL (1.5-8.5); NEUTROPHILS % 69.9 % (36.0-66.0); PLATELET COUNT, AUTOMATED 201 10^3/uL (150-450); WHITE BLOOD COUNT 5.6 10^3/uL (4.0-10.0)
[2019-12-01 14:50] LABS: HCG, SERUM QUALITATIVE NEGATIVE (NEGATIVE)
[2019-12-01 14:53] LABS: ACETAMINOPHEN LEVEL < 2.0 UG/ML (10.0-30.0); ALBUMIN 4.3 GM/DL (3.2-5.2); ALT/SGPT 22 U/L (12-78); BILIRUBIN,DIRECT 0.2 MG/DL (0.0-0.2); BILIRUBIN,TOTAL 0.7 MG/DL (0.2-1.0); BLOOD UREA NITROGEN 16 MG/DL (7-18); CARBON DIOXIDE LEVEL 27 MEQ/L (21-32); CHLORIDE LEVEL 105 MEQ/L (98-107); CPK CREATINE PHOSPHOKINASE 71 U/L (26-192); CREATININE FOR GFR 0.72 MG/DL (0.55-1.30); ETHYL ALCOHOL (ETHANOL) 0.003 % (0.000-0.010); GLOMERULAR FILTRATION RATE > 60.0 (>60); GLUCOSE, FASTING 69 MG/DL (70-100); POTASSIUM SERUM 3.9 MEQ/L (3.5-5.1); SALICYLATE LEVEL < 1.7 MG/DL (5.0-30.0); SODIUM LEVEL 139 MEQ/L (136-145); TOTAL PROTEIN 7.6 GM/DL (6.4-8.2)
[2019-12-01 17:30] LABS: AMPHETAMINES LEVEL URINE NEGATIVE (NEGATIVE); BARBITURATES URINE NEGATIVE (NEGATIVE); BENZODIAZEPINES URINE NEGATIVE (NEGATIVE); CANNABINOIDS URINE NEGATIVE (NEGATIVE); COCAINE METABOLITE URINE NEGATIVE (NEGATIVE); METHADONE URINE NEGATIVE (NEGATIVE); OPIATES URINE NEGATIVE (NEGATIVE); PHENCYCLIDINE URINE NEGATIVE (NEGATIVE)
[2019-12-01] MEDS ORDERED: NICOTINE 21MG/24HR 1 EA TRANSDERMAL TD ONE (19:15)
--- NOTE | 2019-12-01 19:39 | ECGEPIP ---
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
[2019-12-01] MEDS ORDERED: MAALOX 30 ML SUSP *UDC PO PRN (20:45)
[2019-12-01] MEDS ORDERED: ACETAMINOPHEN TAB 650MG DOSE (2X325MG) PO PRN (20:45)
[2019-12-01] MEDS ORDERED: MOM 30ML SUSPENSION UDC PO PRN (20:45)
[2019-12-01 21:51] VITALS: BP 111/60
[2019-12-01] MEDS: traZODone 50 MG TAB PO PRN (22:13)
[2019-12-02] MEDS: NICOTINE 21MG/24HR 1 EA TRANSDERMAL TD SCH (09:00)
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
--- NOTE | 2019-12-02 16:43 | HPEPDOC ---
General Date of Admission Dec 01, 2019 at 20:40 Date of Service: Dec 02, 2019 Chief Complaint The patient is a 24-year-old female admitted with a reason for visit of Unspecified Depressive D/O. History of Present Illness 24 year old female admitted to [facility] after suicidal attempt by injesting several Xanax. i am seeing he patient for medical history and physical. Patient does not offer any complaints at this time. Home Medications No Active Prescriptions or Reported Meds Allergies Coded Allergies: aloe (Verified Allergy, Intermediate, hives, 12/01/19) hives lavender (Lavandula angustifolia) (Verified Allergy, Intermediate, hives, 12/01/19) hives clindamycin (Verified Allergy, Unknown, swelling, 12/01/19) swelling nystatin (Verified Allergy, Unknown, swelling, 12/01/19) swelling sulfamethoxazole (Verified Allergy, Unknown, swelling, 12/01/19) swelling trimethoprim (Verified Allergy, Unknown, swelling, 12/01/19) swelling Past Medical History Medical History Major Depression PTSD post depression Cystic Acne Surgical History 1. section. 2. Cholecystectomy. 3. Repair of scoliosis with insertion of rods. 4. Tonsillectomy. 5. Nasal hemangioma removed. Family History Significant Family History: Other (mother with alcoholism) Social History * Smoker: current smoker Alcohol: occationally Drugs: marijuana A-FIB/CHADSVASC A-FIB History Current/History of A-Fib/PAF?: No Review of Systems Constitutional: Denies: Chills, Fever, Night Sweats Eyes: Denies: Pain, Vision change ENT: Denies: Head Aches, Ear Pain, Dysphagia Skin: Denies: Rash, Lesions, Breakdown Pulmonary: Denies: Dyspnea, Cough Cardiovascular: Denies: Chest Pain, Palpitations, Orthopnea, Paroxysmal Noc. Dyspnea, Lt Headedness Gastrointestinal: Denies: Nausea, Vomiting, Abdominal Pain, Diarrhea Genitourinary: Denies: Dysuria, Frequency, Incontinence, Retention Hematologic: Denies: Bruising, Bleeding Excessively Musculoskeletal: Denies: Neck Pain, Back Pain, Joint Pain, Muscle Pain, Spasms Physical Examination General Exam: Positive: Alert, Cooperative, No Acute Distress Eye Exam: Positive: PERRLA, Conjunctiva & lids normal, EOMI; Negative: Sclera icteric ENT Exam: Positive: Atraumatic, Mucous membr. moist/pink, Pharynx Normal Neck Exam: Positive: Supple; Negative: JVD, thyromegaly Chest Exam: Positive: Clear to auscultation, Normal air movement Heart Exam: Positive: Rate Normal, Regular Rhythm, Normal S1, Normal S2; Negative: Murmurs, Rubs Abdomen Exam: Positive: Normal bowel sounds, Soft; Negative: Tenderness, Hepatospenomegaly Extremity Exam: Positive: Normal pulses; Negative: Clubbing, Cyanosis, Edema Skin Exam: Positive: Nl turgor and temperature; Negative: Breakdown, Lesion Vital Signs Vital Signs Date Time Temp Pulse Resp B/P (MAP) Pulse Ox O2 Delivery O2 Flow Rate FiO2 12/01/19 21:51 98.5 88 16 111/60 (77) 98 Non-Rebreather Laboratory Data Labs 24H Laboratory Tests 2 12/01/19 14:11: Immature Granulocyte % (Auto) 0.2, Neutrophils (%) (Auto) 69.9H, Lymphocytes (%) (Auto) 23.3L, Monocytes (%) (Auto) 6.0H, Eosinophils (%) (Auto) 0.2, Basophils (%) (Auto) 0.4, Neutrophils # (Auto) 3.9, Lymphocytes # (Auto) 1.3L, Monocytes # (Auto) 0.3, Eosinophils # (Auto) 0.0, Basophils # (Auto) 0.0, Nucleated Red Blood Cells % (auto) 0.0, Anion Gap 7L, Glomerular Filtration Rate > 60.0, Calcium Level 9.0, Total Bilirubin 0.7, Direct Bilirubin 0.2, Aspartate Amino Transf (AST/SGOT) 13, Alanine Aminotransferase (ALT/SGPT) 22, Alkaline Phosphatase 79, Total Creatine Kinase 71, Total Protein 7.6, Albumin 4.3, Albumin/Globulin Ratio 1.30, Thyroid Stimulating Hormone (TSH) 1.430, Human Chorionic Gonadotropin, Qual NEGATIVE, Salicylates Level < 1.7L, Acetaminophen Level < 2.0L, Ethyl Alcohol Level 0.003 12/01/19 16:57: Urine Opiates Screen NEGATIVE, Urine Methadone Screen NEGATIVE, Urine Barbiturates Screen NEGATIVE, Urine Phencyclidine Screen NEGATIVE, Urine Amphetamines Screen NEGATIVE, Urine Benzodiazepines Screen NEGATIVE, Urine Cocaine Metabolite Screen NEGATIVE, Urine Cannabinoids Screen NEGATIVE CBC/BMP Laboratory Tests 12/01/19 14:11 Assessment/Plan 24 year old female admitted to [facility] after suicidal attempt by injesting several Xanax. i am seeing he patient for medical history and physical. Patient does not offer any complaints at this time. No active medical issues at this time Psych as per psychiatry Plan / VTE VTE Prophylaxis Ordered?: No RHONDA MARCUS MD Dec 02, 2019 13:39
[2019-12-02 17:30] VITALS: BP 105/55
[2019-12-02] MEDS: traZODone 50 MG TAB PO PRN (22:27)
[2019-12-03 06:27] VITALS: BP 107/52
[2019-12-03] MEDS: NICOTINE 21MG/24HR 1 EA TRANSDERMAL TD SCH (09:00)
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
[2019-12-03 15:00] VITALS: BP 102/58
[2019-12-03] MEDS: traZODone 50 MG TAB PO PRN (22:53)
[2019-12-04 06:09] VITALS: BP 94/48
[2019-12-04] MEDS: NICOTINE 21MG/24HR 1 EA TRANSDERMAL TD SCH (09:00)
--- NOTE | 2019-12-04 09:31 | MHIPNPDOC ---
[facility] Progress Note Progress Note DATE OF SERVICE: 12/04/19 HISTORY: . VITAL SIGNS: See below. NEW TEST RESULTS: . CURRENT MEDICATIONS: See below. MENTAL STATUS EXAMINATION: Patient is a -year old female, who is . Speech: Is . Language skills are . Thought processes including: . Thought content: . Abstract reasoning, and computation: . Description of asso ciations: . Description of abnormal or psychotic thoughts: . Judgment: . Insight: [very limited, good, fair. poor]. Orientation: . Recent and remote memory: . Attention span and concentration: . Language: . Fund of knowledge: . Mood: . Affect: . DIAGNOSES: 1. . 2. . 3. . ASSESSMENT: MANAGEMENT PLAN: . TIME SPENT: minutes. Vital Signs Vital Signs Date Time Temp Pulse Resp B/P (MAP) Pulse Ox O2 Delivery O2 Flow Rate FiO2 12/04/19 06:09 98.2 65 16 94/48 (63) 12/03/19 15:00 98 Room Air Current Medications Current Medications Medications (Trade) Dose Ordered Sig/Eva Route PRN Reason Start Time Stop Time Status Last Admin Dose Admin Acetaminophen (Tylenol Tab) 650 mg Q6HP PRN PO HEADACHE or DISCOMFORT 12/01/19 20:45 Al Hydrox/Mg Hydrox/Simethicone (Mylanta) 30 ml Q4HP PRN PO HEARTBURN/INDIGESTION 12/01/19 20:45 Home Med (Med Rec Complete!) ASDIRECTED XX 12/01/19 22:15 12/01/19 22:08 DC Magnesium Hydroxide (Milk Of Magnesia) 30 ml DAILYPRN PRN PO CONSTIPATION 12/01/19 20:45 Nicotine (Nicoderm Cq 21mg) 1 patch DAILY TD 12/02/19 09:00 Trazodone HCl (Desyrel) 50 mg QHSP PRN PO INSOMNIA 12/01/19 20:45 12/03/19 22:53 Allergies Coded Allergies: aloe (Verified Allergy, Intermediate, hives, 12/01/19) hives lavender (Lavandula angustifolia) (Verified Allergy, Intermediate, hives, 12/01/19) hives clindamycin (Verified Allergy, Unknown, swelling, 12/01/19) swelling nystatin (Verified Allergy, Unknown, swelling, 12/01/19) swelling sulfamethoxazole (Verified Allergy, Unknown, swelling, 12/01/19) swelling trimethoprim (Verified Allergy, Unknown, swelling, 12/01/19) swelling NICOLE SCHAFER DO Dec 04, 2019 09:31
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
[2019-12-04] MEDS ORDERED: NICO21PAT TD (10:33)
== END 2019-12-04 14:00 | disposition home or self-care (01) | DRG 883 ==
LOC: M ED 13:34 → M ED INP 20:40 → M PSY 21:51
PROVIDERS: ADMIT Psychiatry & Neurology Psychiatry; ATTEND Psychiatry & Neurology Addiction Medicine
DX: F60.3 Borderline personality disorder (principal); F11.94 Opioid use, unspecified with opioid-induced mood disorder; F13.24 Sedative, hypnotic or anxiolytic dependence with sedative, hypnotic or anxiolytic-induced mood disorder; F32.9 Major depressive disorder, single episode, unspecified; F43.10 Post-traumatic stress disorder, unspecified; Z91.5 Personal history of self-harm; Z81.1 Family history of alcohol abuse and dependence; F17.200 Nicotine dependence, unspecified, uncomplicated; Z62.810 Personal history of physical and sexual abuse in childhood; Z56.0 Unemployment, unspecified; Z88.1 Allergy status to other antibiotic agents; Z88.8 Allergy status to other drugs, medicaments and biological substances; Z91.048 Other nonmedicinal substance allergy status; T42.4X1A Poisoning by benzodiazepines, accidental (unintentional), initial encounter